=== PATIENT | male | born 1980 | race Two or more races ===

== ENCOUNTER 2021-01-14 20:23 | Emergency (ER) | payer OTHER ==
[~2021-01-14] VITALS: Ht 182.9 cm; Wt 75.0 kg
[2021-01-14 20:30] VITALS: BP 127/83
[2021-01-14] MEDS ORDERED: BACITRACIN ZINC OINT UDPKT TOP ONE (22:30)
[2021-01-14] MEDS ORDERED: ACETAMINOPHEN 325MG TABLET PO ONE (22:30)
[2021-01-14] MEDS ORDERED: TETANUS, DIPHTHERIA, PERTUSSIS VAC/PF 0.5ML (>7YR OLD) IM ONE (22:30)
[2021-01-14] MEDS ORDERED: ACET-2708 MT (22:44)
[2021-01-14] MEDS ORDERED: BO1 TP (22:44)
== END 2021-01-14 23:07 | disposition home or self-care (01) ==
LOC: ER 20:23
DX: S00.81XA Abrasion of other part of head, initial encounter (principal); W10.8XXA Fall (on) (from) other stairs and steps, initial encounter; Y93.89 Activity, other specified; Y92.89 Other specified places as the place of occurrence of the external cause; Y99.8 Other external cause status
CPT/HCPCS: 90471; 90715; 99283